=== PATIENT | male | born 1980 | race American Indian/Alaskan Native ===

== ENCOUNTER 2019-01-27 21:24 | Emergency (ER) | payer MEDICARE ==
--- NOTE | 2019-01-27 21:37 | Emergency Department Report ---
HPI - General Time Seen by Provider: 01/27/19 21:27 - HPI HPI: Room 26 The patient is a 38-year-old male presenting with chief complaint of pseudoseizures. The patient has a history of pseudoseizures and MRKaylah The patient was reportedly at work when he began having a "focal left upper extremity" clonic episode. EMS arrived on scene and administered Ativan 2 mg IV with no change. The patient's mother arrived on scene reported the patient has a history of pseudoseizures. She was able to talk to the patient and eventually his clonic episodes stop. Patient is currently resting on the stretcher Location: [See above] Duration: [See above] Quality: [See above] Severity: [See above] Modifying factors: [see above] Context: [see above] Mode of transportation: [not driving] ED Past Medical Hx - Past Medical History Additional medical history: mentally challenged, tinea capitus, pseudoseizures - Surgical History Past Surgical History?: No - Family History Family history: no significant - Social History Smoking Status: Never Smoker Substance Use Type: None - Medications Home Medications: Home Medications Medication Instructions Recorded Confirmed Last Taken Type risperiDONE [RisperDAL] 1 mg PO QHS 07/14/14 12/15/15 12/14/15 20:00 History ED Review of Systems ROS: Stated complaint: SEIZURE Other details as noted in HPI Comment: Unobtainable due to pts medical conditions Physical Exam - Physical Exam Physical Exam: GENERAL: The patient is well-developed well-nourished male lying on stretcher not appearing to be in acute distress. [] HEENT: Normocephalic. Atraumatic. Extraocular motions are intact. Patient has moist mucous membranes. NECK: Supple. Trachea midline CHEST/LUNGS: Clear to auscultation. There is no respiratory distress noted. HEART/CARDIOVASCULAR: Regular. There is no tachycardia. There is no gallop rub or murmur. ABDOMEN: Abdomen is soft, nontender. Patient has normal bowel sounds. There is no abdominal distention. SKIN: There is no rash. There is no edema. There is no diaphoresis. NEURO: The patient is resting after administration of Ativan. Patient will not awaken to cooperate with neurologic exam at this time MUSCULOSKELETAL: There is no evidence of acute injury. ED Course - Reevaluation(s) Reevaluation #1: 01/27/19 23:47 Patient now awake and answering questions. Patient denies complaints stating he feels like his normal self. ED Medical Decision Making - Lab Data Result diagrams: 01/27/19 21:41 01/27/19 23:17 - Differential Diagnosis pseudoseizure, electrolyte imbalance Critical care attestation.: If time is entered above; I have spent that time in minutes in the direct care of this critically ill patient, excluding procedure time. ED Disposition Clinical Impression: Pseudoseizure Disposition: DC-01 TO HOME OR SELFCARE Is pt being admited?: No Does the pt Need Aspirin: No Condition: Stable Additional Instructions: Return to the emergency department immediately should you develop worsening symptoms, fever, inability to tolerate food or liquid or any other concerns. Referrals: SKY GRAHAMFERNDALE MD RALPH [Primary Care Provider] - 3-5 Days [facility] [Outside] - 3-5 Days CHADD MAKI MD [Staff Physician] - 3-5 Days Time of Disposition: 23:48
[2019-01-27 21:56] LABS: Basophils % (Auto) 0.7 % (0.0-1.8); Eosinophils # (Auto) 0.1 K/mm3 (0.0-0.4); Eosinophils % (Auto) 1.6 % (0.0-4.3); Hematocrit 39.1 % (35.5-45.6); Lymphocytes # (Auto) 0.7 K/mm3 (1.2-5.4); Lymphocytes % (Auto) 16.2 % (13.4-35.0); Mean Corpuscular HGB Conc 33 % (32-34); Mean Corpuscular Volume 87 fl (84-94); Monocytes # (Auto) 0.3 K/mm3 (0.0-0.8); Monocytes % (Auto) 8.2 % (0.0-7.3); Platelet Count 176 K/mm3 (140-440); Red Blood Count 4.48 M/mm3 (3.65-5.03); Red Cell Distribution Width 13.3 % (13.2-15.2)
[2019-01-27 23:44] LABS: BUN/Creatinine Ratio 24; Blood Urea Nitrogen 19 mg/dL (9-20); Calcium 8.9 mg/dL (8.4-10.2); Hemolysis Index 23
[2019-01-28 00:45] VITALS: BP 108/68
== END 2019-01-28 00:44 | disposition home or self-care (01) ==
LOC: ED 21:24
DX: F44.5 Conversion disorder with seizures or convulsions (principal); Z88.8 Allergy status to other drugs, medicaments and biological substances; Z79.899 Other long term (current) drug therapy
CPT/HCPCS: 36415; 80048; 82550; 83735; 85025